=== PATIENT | female | born 1980 | race Hispanic/Latino ===

== ENCOUNTER 2018-09-03 18:22 | Inpatient (IN) | payer OTHER ==
[2018-09-03 19:15] VITALS: BMI 25.0
[2018-09-03] MEDS ORDERED: Lactated Ringer's 1,000 ML IV ONE (19:15)
[2018-09-03] MEDS ORDERED: Oxytocin 30 UNIT 30 UNITS/500 ML BAG IV ONE (19:17)
[2018-09-03] MEDS ORDERED: OXYTOCIN/0.9 % NS 20 UNIT/1,000 ML BAG IV SCH (19:30)
[2018-09-03 21:04] LABS: BASO % 0.4 % (0.0-2.0); EOS % 0.4 % (0.0-4.0); HEMOGLOBIN 10.5 g/dL (12.0-16.0); LYMPH % 23.6 % (20.0-40.0); MEAN CELL VOLUME 87.4 fl (81.0-99.0); MEAN CORPUSCULAR HEMOGLOBIN 29.1 pg (27.0-31.0); MEAN CORPUSCULAR HGB CONC 33.2 g/dL (33.0-37.0); MEAN PLATELET VOLUME 8.2 fl (7.2-11.7); MONO # 0.5 K/uL (0.0-0.8); MONO % 6.3 % (0.0-10.0); NEUT # 5.9 K/uL (1.8-7.0); NEUT % 69.3 % (50.0-75.0); RBC 3.62 Mil/uL (3.80-5.20); RED CELL DISTRIBUTION WIDTH 14.4 % (11.5-14.5); WHITE BLOOD COUNT 8.5 K/uL (4.8-10.8)
--- NOTE | 2018-09-03 22:31 | OBHP ---
Datetime: 09/03/2018 21:05 IP Adm Impression: Term, intrauterine IP Admit Plan: Admit to unit; Initiate labor induction protocol Admit Comment, IP Provider: S: 38 yo with IUP @ 37.5 based on CHELSIE of 09/18/18 with history of HS V1 presents for induction of labor secondary to Anhydramnios. Denies any active complaints at this ti me. O: Vitally stable. Cervical exam: Closed- posterior; station - 0 ; cervidil placed at this time. FHT: 150 baseline; Moderate variability; Accelerations present. No decelerations. Category 1 mariana ng. A/P: 38 yo with IUP @ 37.5 based on CHELSIE of 09/18/18 with history of HSV1 presents for inductio n of labor secondary to Anhydramnios - Cervidil placed at this time. - continous monitoring Patient was seen with resident I agree with the note FHR - Baseline A Provider: 150 Vital Signs Provider: Reviewed; Within Normal Limits IP Indication for Induction Oth: Anhydramnios IP Chief Complaint: Scheduled induction of labor NICHD Variability Prov Fetus A: Moderate 6-25bpm NICHD Accel Fetus A IP Provider: [id number] FHR Category Provider Fetus A: Category I NICHD Decel Fetus A IP Provider: None Dilatation, Provider: closed-posterior Station, Provider: 0 Datetime: 09/03/2018 20:03 Pelvic Type - PN: Adequate Extremities - PN: Normal Abdomen - PN: Normal Back - PN: Not Done Breast - PN: Normal Lungs - PN: Normal Heart - PN: Normal Thyroid - PN: Not Done Neurologic - PN: Not Done HEENT - PN: Not Done General - PN: Normal Genitourinary Exam: Normal DTRs - PN: Not Done
[2018-09-03 22:36] VITALS: O2SAT 100
--- NOTE | 2018-09-04 14:30 | OBPN ---
Datetime: 09/04/2018 14:23 IP Progress Impression Other: category 1 heart tracing IP Procedures: Sterile Vag Exam IP Progress Plan: Continue present management; Induction FHR - Baseline A Provider: 130s-140s IP Progress Note Comment: Cervidil removed at 10:00 AM. Patient without complaints at this time. Brittni n to continue induction of labor with oral Cytotec. Discussed plan with patient and all patient quest ions answered. Category 1 heart tracing. Vital Signs Provider: Reviewed; Within Normal Limits NICHD Accel Fetus A IP Provider: [id number] FHR Category Provider Fetus A: Category I NICHD Variability Prov Fetus A: Moderate 6-25bpm Dilatation, Provider: 0 Effacement, Provider: 0 Station, Provider: -4 NICHD Decel Fetus A IP Provider: None Datetime: 09/04/2018 06:14 IP Progress Impression: Normal progression of labor; Reassuring heart rate
[2018-09-04] MEDS ORDERED: Nalbuphine HCL 10 mg/ml Ampule IVP ONE (20:15)
[2018-09-04] MEDS: Lactated Ringer's 1,000 ML IV SCH (20:21)
[2018-09-04] MEDS ORDERED: Nalbuphine 20 mg/ml Inj (1 ml) IVP ONE (20:30)
[2018-09-05] MEDS ORDERED: Fentanyl/Bupivacaine HCl 250 ML EPI ONE (01:19)
[2018-09-05] MEDS ORDERED: Lactated Ringer's 1,000 ML IV ONE (01:25)
[2018-09-05] MEDS: Lactated Ringer's 1,000 ML IV SCH ×2 (03:25→11:15)
[2018-09-05] MEDS ORDERED: Oxytocin 30 UNIT 30 UNITS/500 ML BAG IV ONE (07:52)
--- NOTE | 2018-09-05 08:04 | OBPN ---
Datetime: 09/05/2018 07:30 IP Progress Impression: Normal progression of labor; Reassuring heart rate IP Informed Consent Obtain: Vaginal Delivery; Risks, Benefits and Alternatives Discussed IP Progress Plan: Augmentation; Anticipate Vaginal Delivery Membranes, Provider: Intact FHR - Baseline A Provider: 140 Presentation-Admit: Vertex IP Progress Note Comment: Sign out rec'd. She was admittde for Oligohydramnios. She was 4cm at 3am . She rec'd epidrual for pain. Latnet phase of labor PLAN: Disucssion about labor, pain management, augmetatoin, delivrey and . She understan ds. She would like clear fluids po and then start pitocin augmentatoin NICHD Accel Fetus A IP Provider: [id number] FHR Category Provider Fetus A: Category I NICHD Variability Prov Fetus A: Moderate 6-25bpm Dilatation, Provider: 4-5 Effacement, Provider: 90 Station, Provider: -1 NICHD Decel Fetus A IP Provider: None
[2018-09-05] MEDS ORDERED: Bupivacaine HCl 0.5% PF (30 ml) Inj ONE (08:41)
[2018-09-05] MEDS ORDERED: Benzocaine/Menthol SPRAY TOP PRN (13:19)
[2018-09-05] MEDS ORDERED: Oxycodone/Acetaminophen 5/325 mg Tab PO PRN (13:19)
[2018-09-06 07:13] LABS: BASO % 0.4 % (0.0-2.0); EOS # 0.1 K/uL (0.0-0.7); EOS % 1.2 % (0.0-4.0); HEMOGLOBIN 9.1 g/dL (12.0-16.0); LYMPH # 1.9 K/uL (1.0-4.3); MEAN CORPUSCULAR HEMOGLOBIN 29.5 pg (27.0-31.0); MEAN CORPUSCULAR HGB CONC 33.9 g/dL (33.0-37.0); MEAN PLATELET VOLUME 8.2 fl (7.2-11.7); MONO # 0.8 K/uL (0.0-0.8); MONO % 7.2 % (0.0-10.0); NEUT # 8.5 K/uL (1.8-7.0); NEUT % 74.2 % (50.0-75.0); NRBC % 0.1 % (0.0-0.0); RBC 3.1 Mil/uL (3.80-5.20); RED CELL DISTRIBUTION WIDTH 14.9 % (11.5-14.5); WHITE BLOOD COUNT 11.4 K/uL (4.8-10.8)
[2018-09-06] MEDS ORDERED: Oxycodone/Acetaminophen 5/325 mg Tab PO PRN (07:28)
[2018-09-06] MEDS ORDERED: Benzocaine/Menthol SPRAY TOP PRN (07:28)
--- NOTE | 2018-09-06 19:12 | OBPPN ---
Datetime: 09/06/2018 11:00 PP Pain Prov: Within normal limits PP Nausea Prov: Denies PP Flatus Prov: Yes PP Breasts Prov: Normal PP Heart Prov: Normal PP Lungs Prov: Normal PP Abdomen/Uterus Prov: Normal PP Lochia Prov: Normal PP Vulva/Perineum Prov: Normal PP CVA Tenderness Prov: Normal PP Extremities Prov: Normal PP Progress Prov: Normal PP Comments Phys Exam Prov: Abd: Soft, NT, BS present UT- Firm PP Impression Prov: Normal progression PP Plan Prov: Continue present management PP Progress Note Prov: S/P , PPD#1 Clinically Stable Plan: Continue care. Vital Signs Provider PP: Reviewed
--- NOTE | 2018-09-07 10:23 | OBDCSUM ---
Datetime: 09/07/2018 10:21 Discharged to, Provider: Home Follow up at, Provider: OB Practitioner Disch Instr Activity: Normal activity Disch Instr Diet: Regular Discharge Instructions, Provider: Routine instructions given Discharge Diagnosis, Provider: Term Delivered Discharge Time: 09/07/2018 10:21 Follow up in weeks, Provider: 4-6 weeks Disch Referrals: None Contraception discussed, Prov: Yes Discharge Comment, Provider: S/P Uncoplicated , Clinically Stable. Discharge Diagnosis Prov Other: S/P Uncoplicated , Clinically Stable.
--- NOTE | 2018-09-07 10:23 | OBPPN ---
Datetime: 09/07/2018 10:18 PP Pain Prov: Within normal limits PP Nausea Prov: Denies PP Flatus Prov: Yes PP Breasts Prov: Normal PP Heart Prov: Normal PP Lungs Prov: Normal PP Abdomen/Uterus Prov: Normal PP Lochia Prov: Normal PP Vulva/Perineum Prov: Normal PP CVA Tenderness Prov: Normal PP Extremities Prov: Normal PP Progress Prov: Normal PP Comments Phys Exam Prov: ABD: Soft, NT, BS- present UT- Firm PP Impression Prov: Normal progression PP Plan Prov: Discharge PP Progress Note Prov: S/p , PPD #2 Clinically Stable Plan: Discharge Home Vital Signs Provider PP: Reviewed
[2018-09-07 18:10] VITALS: BP 111/71; PULSE 96; RESP 20; TEMP 98.3
== END 2018-09-07 13:50 | disposition home or self-care (01) | DRG 807 ==
LOC: H.EROB2 18:22 → H.L&D 19:15 → H.OB/GYN 09-05 15:48
PROVIDERS: ADMIT Obstetrics & Gynecology Gynecology; ATTEND Obstetrics & Gynecology Gynecology
PROC: 10E0XZZ Delivery of Products of Conception, External Approach (ICD-10-PCS; principal; 2018-09-03)
PROC: 0KQM0ZZ Repair Perineum Muscle, Open Approach (ICD-10-PCS; 2018-09-03)
PROC: 4A1HXCZ Monitoring of Products of Conception, Cardiac Rate, External Approach (ICD-10-PCS; 2018-09-03)
DX: O41.03X0 Oligohydramnios, third trimester, not applicable or unspecified (principal); Z37.0 Single live birth; Z3A.37 37 weeks gestation of pregnancy; O70.1 Second degree perineal laceration during delivery